=== PATIENT | male | born 1985 | race Caucasian/White ===

== ENCOUNTER 2017-11-17 02:33 | Emergency (ER) | payer OTHER ==
[~2017-11-17] VITALS: Ht 177.8 cm; Wt 109.5 kg
[~2017-11-17 02:33] MED LIST: PERCOCET 5/31 TABLET PO; ZOFRAN ODT8 MG PO
[2017-11-17 03:28] LABS: HEMATOCRIT 43.1 % (38.0-50.0); HEMOGLOBIN 15.3 G/DL (12.5-16.6); MCH 29.4 PG (29.0-34.0); MCHC 35.5 G/DL (30.0-36.0); MCV 82.9 FL (86-99); PLATELET COUNT 243 K/uL (156-360); RBC DIS.WIDTH-CV 11.8 % (11.8-14.6); RBC DIS.WIDTH-SD 35.7 % (39-53)
[2017-11-17 03:38] LABS: ALBUMIN 4.2 g/dL (3.2-4.8)
[2017-11-17 03:39] LABS: CHLORIDE 102 mEq/L (99-109); POTASSIUM 3.1 mEq/L (3.7-5.4); SODIUM 136 mEq/L (136-147)
[2017-11-17 03:41] LABS: GLUCOSE 119 mg/dL (70-99); TOTAL PROTEIN 6.6 g/dL (6.4-8.3)
[2017-11-17 03:43] LABS: TOTAL BILIRUBIN 0.4 mg/dL (0.0-1.0)
[2017-11-17 03:44] LABS: ALKALINE PHOSPHATASE 98 IU/L (3-129)
[2017-11-17 03:45] LABS: GFR ESTIMATE (CALCULATED) > 59 mL/min/ (58.99-99999)
[2017-11-17 03:46] LABS: AST (GOT) 29 IU/L (2-34); UREA NITROGEN (BUN) 10 mg/dL (9-23)
[2017-11-17 03:48] LABS: ALT (GPT) 59 IU/L (3-49); LIPASE 22 U/L (1.0-51.0)
[2017-11-17 04:08] LABS: APPEARANCE SL.HAZY ((CLEAR)); BILIRUBIN NEGATIVE; BLOOD LARGE; COLOR YELLOW ((YELLOW)); GLUCOSE (STRIP) NEGATIVE; KETONES NEGATIVE; LEUKOCYTES NEGATIVE; NITRITE NEGATIVE; PROTEIN (STRIP) 30; UROBILINOGEN 0.2 MG/DL (0.2-1.0)
[2017-11-17 04:15] LABS: BACTERIA NONE SEEN /HPF; EPITHELIAL CELLS NONE SEEN /HPF; MUCUS 2+ /LPF; RED BLOOD CELLS TNTC /HPF (0-5); UCUL ADDED? YES; WHITE BLOOD CELLS 0-5 /HPF (0-5)
[2017-11-17] MEDS ORDERED: FLOMAX0.4 MG PO (04:30)
[2017-11-17] MEDS ORDERED: PERCOCET 5/31 TABLET PO (04:30)
[2017-11-17] MEDS ORDERED: ZOFRAN ODT4 MG PO (04:30)
[2017-11-17 04:44] VITALS: BP 136/84
== END 2017-11-17 04:45 | disposition home or self-care (01) ==
LOC: EME 02:33
PROVIDERS: Emergency Medicine
DX: N20.1 Calculus of ureter (principal); Z87.442 Personal history of urinary calculi; Z88.1 Allergy status to other antibiotic agents
CPT/HCPCS: 74176; 80053; 81003; 83690; 85027; 87086; 99281; 99284; J1885; J2405; J7030